=== PATIENT | female | born 1985 ===

== ENCOUNTER 2017-01-09 10:46 | Emergency (ER) | payer OTHER ==
--- NOTE | 2017-01-09 12:33 | UC ---
Abdominal Pain Female HPI - HPI Summary HPI Summary: 2 DAYS OF WATERY DIARRHEA AND ABD CRAMPING. NO N/V OR FEVER. FEELS DEHYDRATED AND OCCASIONALLY LIGHTHEADED. IS ALSO INTERESTED IN STARTING MEDICATION FOR DEPRESSION. WEANED OFF HER SERTRALINE SEVERAL MONTHS AGO THINKING SHE DIDN'T NEED IT BUT STATES SHE IS NOT DOING WELL OFF IT. IS ALSO REQUESTING CONTROL PILLS. - History of Current Complaint Chief Complaint: UCGI Stated Complaint: BOWEL COMPLAINTS/DIARRHEA Time Seen by Provider: 01/09/17 11:44 Hx Obtained From: Patient Hx Last Menstrual Period: December 24, 2016 Onset/Duration: Gradual Onset, Lasting Weeks, Still Present Timing: Constant Severity Initially: Moderate Severity Currently: Moderate Pain Intensity: 0 Pain Scale Used: 0-10 Numeric Character: Cramping Aggravating Factor(s): Nothing Alleviating Factor(s): Nothing Associated Signs and Symptoms: Positive: Diarrhea. Negative: Fever, Constipation, Blood in Stool, Urinary Symptoms, Decreased Appetite, Vaginal Bleeding, Vaginal Discharge, Nausea, Vomiting Allergies/Adverse Reactions: Allergies Allergy/AdvReac Type Severity Reaction Status Date / Time No Known Allergies Allergy Verified 01/09/17 11:07 Home Medications: Home Medications Loperamide CAP* [Imodium CAP*] 01/09/17 [History] PMH/Surg Hx/FS Hx/Imm Hx Psychological History: Depression - Surgical History Surgical History: None - Family History Known Family History: Positive: Unknown - PT ADOPTED - Social History Alcohol Use: Occasionally Substance Use Type: None Smoking Status (MU): Never Smoked Tobacco Review of Systems Constitutional: Negative Respiratory: Negative Cardiovascular: Negative Gastrointestinal: Abdominal Pain, Diarrhea Psychological: Depressed All Other Systems Reviewed And Are Negative: Yes Physical Exam Triage Information Reviewed: Yes Appearance: Well-Appearing, No Pain Distress, Well-Nourished Vital Signs: Initial Vital Signs Temp 99.0 F 01/09/17 11:00 Pulse 77 01/09/17 11:00 Resp 12 01/09/17 11:00 BP 98/65 01/09/17 11:00 Pulse Ox 100 01/09/17 11:00 Vital Signs Reviewed: Yes Eyes: Positive: Conjunctiva Clear ENT: Positive: Hearing grossly normal, Other: - MUCOUS MEMBRANES MOIST Neck: Positive: Supple Respiratory Exam: Normal Cardiovascular Exam: Normal Abdomen Description: Positive: Soft, Other: - MILDLY TENDER LLQ. NO REBOUND OR RIGIDITY. Negative: Distended, Guarding Bowel Sounds: Positive: Present Musculoskeletal: Positive: No Edema Neurological: Positive: Alert Psychological: Positive: Age Appropriate Behavior Skin: Negative: rashes Abd Pain Female Course/Dx - Course Course Of Treatment: IF DIARRHEA DOES NOT IMPROVE BRING IN A STOOL SPECIMEN FOR TESTING. CALL GI IF NEEDED. FOR DEPRESSION PT DOES NOT WANT TO RESTART SERTRALINE DUE TO FATIGUE. IS INTERESTED IN DIFFERENT MEDICATION. HAVE REFERRED TO [facility] TO HELP ESTABLISH WITH A PCP. INFO FOR [facility] ALSO PROVIDED. PT INTERESTED IN CONTROL. CONTACT FOR [facility] PROVIDED. - Differential Dx/Diagnosis Provider Diagnoses: 1. ACUTE DIARRHEA. 2. DEPRESSION Discharge - Discharge Plan Condition: Stable Disposition: HOME Patient Education Materials: Depression (ED), Acute Diarrhea (ED) Referrals: Jason Dumont MD [Medical Doctor] - If Needed Additional Instructions: YOUR DIARRHEA IS LIKELY DUE TO A VIRAL ILLNESS AND SHOULD RESOLVE ON ITS OWN IN SEVERAL DAYS. IF IT DOES NOT IMPROVE BRING IN A STOOL SPECIMEN FOR TESTING. YOU MAY ALSO CHOOSE TO FOLLOW-UP WITH GI FOR FURTHER EVALUATION. CALL THE NUMBER BELOW FOR ASSISTANCE IN ESTABLISHING WITH A PCP An additional resource available to assist in finding the appropriate physician for your health care needs is the [facility] ([facility]). You may contact them by calling [phone]. [facility] Address: [address] [place] [address] [facility] Address: [address] [place] [address]
== END 2017-01-09 12:35 | disposition home or self-care (01) ==
LOC: UCEAST 10:46
DX: R19.7 Diarrhea, unspecified (principal); F32.9 Major depressive disorder, single episode, unspecified
CPT/HCPCS: 99202; G0463